=== PATIENT | female | born 1990 | race African-American/Black ===

== ENCOUNTER 2017-10-25 13:20 | Emergency (ER) | payer MEDICAID, OTHER ==
[~2017-10-25] VITALS: Ht 170.2 cm; Wt 66.0 kg
[2017-10-25] MEDS ORDERED: KETOROLAC 30MG/ML VIAL IV ONE (14:15)
[2017-10-25] MEDS ORDERED: SODIUM CHLORIDE 0.9% 1,000 ML IV ONE (14:15)
[2017-10-25 14:48] LABS: BASOPHILS % 0.3 % (0.0-2.0); EOSINOPHILS % 1.7 % (0.0-5.0); HEMATOCRIT. 26.7 % (36.0-48.0); HEMOGLOBIN. 8.9 g/dL (12.0-16.0); LYMPHOCYTES % 20.2 % (20.0-50.0); MEAN CORPUSCULAR HEMOGLOBIN 30.4 pg (28.0-32.0); MEAN CORPUSCULAR VOLUME 91.2 fL (81.0-99.0); MEAN PLATELET VOLUME 7.8 fl (7.4-10.4); NEUTROPHILS % 68.8 % (40.0-76.0); PLATELET 334 x1000/uL (130-400); RED BLOOD CELL COUNT 2.93 mill/uL (4.2-5.4); RED CELL DISTRIBUTION WIDTH 12.8 % (11.6-14.6)
[2017-10-25 14:57] LABS: CHLORIDE 106 mEq/L (98-107)
[2017-10-25] MEDS ORDERED: ACETAMINOPHEN WITH CODEINE 300/30MG TABLET PO ONE (16:30)
[2017-10-25 17:16] VITALS: BP 126/84
== END 2017-10-25 17:20 | disposition home or self-care (01) ==
LOC: ER 13:20
DX: N93.9 Abnormal uterine and vaginal bleeding, unspecified (principal); D64.9 Anemia, unspecified; R10.30 Lower abdominal pain, unspecified
CPT/HCPCS: 36415; 76856; 80048; 85025; 99285; J7030